=== PATIENT | female | born 1980 | race Hispanic/Latino ===

== ENCOUNTER 2020-08-05 20:17 | Emergency (ER) | payer SELFPAY ==
[~2020-08-05 20:17] MED LIST: Iopamidol-370 76% 500 ML 1 ML ONE
[2020-08-05 21:50] LABS: #Lymphocytes 1.2 thou/uL (1.20-3.40); #Monocytes 0.3 thou/uL (0.11-0.59); %Basophils 0.1 % (0.0-1.0); %Eosinophils 0.3 % (0.0-10.0); %Lymphocytes 21.3 % (21.0-51.0); %Neutrophils 72.3 % (42.0-75.0); Hemoglobin 14.9 g/dL (12.0-16.0); Mean Corpuscular HGB CONC 34.2 g/dL (32.0-36.0); Mean Corpuscular Hemoglobin 27.7 pg (27.0-31.0); Mean Platelet Volume 9.6 fL (7.4-10.4); Platelet Count 179 thou/uL (130-400); RBC Distribution Width 13.2 % (11.5-14.5); Red Blood Cell (RBC) Count 5.38 mill/uL (4.20-5.40); White Blood Cell (WBC) Count 5.5 thou/uL (4.8-10.8)
[2020-08-05 21:56] LABS: BHCG - Serum Negative (NEGATIVE); Pregs Control Background? CLEAR/WHITE (CLR/WHITE); Pregs Control Bar Appear? YES (CONTROL BAR)
[2020-08-05 22:01] LABS: INR-International Normal Ratio 0.9; PTT 29.3 sec (22.9-36.1); Prothrombin Time 12.8 sec (12.0-14.7)
[2020-08-05 22:05] LABS: ALT (SGPT) 29 U/L (8-55); AST (SGOT) 22 U/L (5-34); Albumin 4.6 g/dL (3.5-5.0); Alkaline Phosphatase 72 U/L (40-110); Anion Gap 12 mmol/L (10-20); BUN (Urea Nitrogen) 15 mg/dL (7.0-18.7); Bilirubin, Total 0.3 mg/dL (0.2-1.2); Calc. Creatinine Clearance 0 mL/min (70-130); Calcium 9.4 mg/dL (7.8-10.44); Carbon Dioxide 26 mmol/L (22-29); Chloride 103 mmol/L (98-107); Globulin 4.1 g/dL (2.4-3.5); Glucose 159 mg/dL (70-105); Lipase 13 U/L (8-78); Potassium 3.5 mmol/L (3.5-5.1); Protein, Total 8.7 g/dL (6.0-8.3); Sodium 137 mmol/L (136-145)
[2020-08-05 22:06] LABS: Acetaminophen Less than 6.0 mcg/mL (10.0-30.0); Alcohol Less than 10 mg/dL (Less than 10); CK (CPK) 76 U/L (29-168); Salicylate Less than 8.0 mg/dL (15.0-30.0)
[2020-08-05] MEDS ORDERED: Metoclopramide HCl 10 MG/2 ML VIAL ONE (22:13)
[2020-08-05] MEDS ORDERED: Dexamethasone 10 MG/ML VIAL ONE (22:13)
[2020-08-05] MEDS ORDERED: Ketorolac Tromethamine 30 MG/ML VIAL ONE (22:13)
[2020-08-05 22:24] LABS: Thyroid Stimulating Hormone 0.3372 uIU/mL (0.35-4.94)
[2020-08-05] MEDS ORDERED: Ondansetron ODT 4 MG TAB ONE (23:11)
== END 2020-08-05 23:06 | disposition home or self-care (01) ==
LOC: ERS 20:17
DX: R51.9 Headache, unspecified (principal); R55 Syncope and collapse; I10 Essential (primary) hypertension; Z79.899 Other long term (current) drug therapy
CPT/HCPCS: 36415; 70450; 70496; 71045; 80053; 80307; 82140; 82550; 83690; 84443; 84484; 84703; 85025; 85610; 85730; 93005; 94760; 96374; 96375; J1100; J1885; J2765; Q0162; Q9967

== ENCOUNTER 2020-08-07 20:47 | Emergency (ER) | payer SELFPAY ==
[2020-08-07 22:32] LABS: #Lymphocytes 1.4 thou/uL (1.20-3.40); #Monocytes 0.4 thou/uL (0.11-0.59); #Neutrophils 4.7 thou/uL (1.40-6.50); %Basophils 0.6 % (0.0-1.0); %Eosinophils 0.1 % (0.0-10.0); %Lymphocytes 21.4 % (21.0-51.0); %Monocytes 6.2 % (0.0-10.0); %Neutrophils 71.8 % (42.0-75.0); Hemoglobin 15.1 g/dL (12.0-16.0); Mean Corpuscular HGB CONC 33.4 g/dL (32.0-36.0); Mean Corpuscular Hemoglobin 27.1 pg (27.0-31.0); Mean Platelet Volume 9.9 fL (7.4-10.4); Platelet Count 161 thou/uL (130-400); RBC Distribution Width 13.4 % (11.5-14.5); Red Blood Cell (RBC) Count 5.58 mill/uL (4.20-5.40); White Blood Cell (WBC) Count 6.5 thou/uL (4.8-10.8)
[2020-08-07 22:49] LABS: ALT (SGPT) 31 U/L (8-55); AST (SGOT) 36 U/L (5-34); Albumin 3.9 g/dL (3.5-5.0); Alkaline Phosphatase 57 U/L (40-110); Anion Gap 18 mmol/L (10-20); BUN (Urea Nitrogen) 21 mg/dL (7.0-18.7); Bilirubin, Total 0.3 mg/dL (0.2-1.2); Calc. Creatinine Clearance 0 mL/min (70-130); Calcium 9.1 mg/dL (7.8-10.44); Carbon Dioxide 17 mmol/L (22-29); Chloride 103 mmol/L (98-107); Globulin 4.5 g/dL (2.4-3.5); Glucose 138 mg/dL (70-105); Potassium 4.3 mmol/L (3.5-5.1); Protein, Total 8.4 g/dL (6.0-8.3); Sodium 134 mmol/L (136-145)
== END 2020-08-07 23:30 | disposition home or self-care (01) ==
LOC: ERS 20:47
DX: R42 Dizziness and giddiness (principal); I10 Essential (primary) hypertension; R73.03 Prediabetes; Z79.84 Long term (current) use of oral hypoglycemic drugs; Z79.899 Other long term (current) drug therapy
CPT/HCPCS: 80053; 84443; 85025; 99284

== ENCOUNTER 2021-09-21 08:22 | Outpatient (CLI) | payer OTHER | END 2021-09-21 08:23 | disposition home or self-care (01) | LOC: BICULT 08:22 | PROVIDERS: ATTEND Family Medicine | DX: O09.522 Supervision of elderly multigravida, second trimester (principal); Z3A.25 25 weeks gestation of pregnancy | CPT/HCPCS: 76805 ==